=== PATIENT | female | born 1995 ===

== ENCOUNTER → 2022-05-24 | Outpatient (REF) | LOC: M LAB 15:40 | PROVIDERS: ATTEND Nurse Practitioner Adult Health | DX: Z02.89 Encounter for other administrative examinations (principal) ==

== ENCOUNTER → 2023-06-13 | Outpatient (REF) | LOC: M EMP 08:57 | PROVIDERS: ATTEND Family Medicine | DX: Z11.52 Encounter for screening for COVID-19 (principal) ==

== ENCOUNTER → 2023-09-14 | Outpatient (REF) | LOC: M EMP 08:04 | PROVIDERS: ATTEND Family Medicine | DX: Z11.52 Encounter for screening for COVID-19 (principal) ==